=== PATIENT | female | born 1950 | race Caucasian/White ===

== ENCOUNTER → 2016-06-14 | Outpatient (CLI) | payer OTHER | END | disposition home or self-care (01) | LOC: CDC 14:04 | DX: R94.31 Abnormal electrocardiogram [ECG] [EKG] (principal) | CPT/HCPCS: 93000 ==

== ENCOUNTER 2016-06-27 22:30 | Inpatient (IN) | payer OTHER ==
[~2016-06-27] VITALS: Ht 152.4 cm; Wt 56.5 kg
[2016-06-27 23:17] LABS: HEMATOCRIT 44.3 % (36.0-46.0); MCH 30.1 PG (29.0-34.0); MCHC 34.1 G/DL (30.0-36.0); MCV 88.4 FL (83-99); MEAN PLAT.VOLUME 9.8 uM^3 (9.5-12.4); PLATELET COUNT 305 K/uL (156-360); RBC DIS.WIDTH-CV 12.2 % (11.8-14.6); RBC DIS.WIDTH-SD 38.8 % (39-53); RED BLOOD COUNT 5.01 M/uL (3.80-5.20); WHITE BLOOD COUNT 8.2 K/uL (4.1-10.2)
[2016-06-27 23:37] LABS: CHLORIDE 106 mEq/L (99-109); POTASSIUM 3.7 mEq/L (3.7-5.4); SODIUM 136 mEq/L (136-147)
[2016-06-27 23:37] LABS: ADD MIUA? YES; BILIRUBIN SMALL; BLOOD MODERATE; COLOR AMBER ((YELLOW)); GLUCOSE (STRIP) NEGATIVE; KETONES NEGATIVE; LEUKOCYTES MODERATE; NITRITE NEGATIVE; PROTEIN (STRIP) 30; SPECIFIC GRAVITY 1.028 (1.000-1.030); UROBILINOGEN 0.2 MG/DL (0.2-1.0)
[2016-06-27 23:38] LABS: GLUCOSE 99 mg/dL (70-99)
[2016-06-27 23:40] LABS: ANION GAP 9 MEQ/L (2-14)
[2016-06-27 23:42] LABS: GFR ESTIMATE (CALCULATED) 48 mL/min/
[2016-06-27 23:43] LABS: UREA NITROGEN (BUN) 21 mg/dL (9-23)
[2016-06-27 23:44] LABS: BACTERIA 2+ /HPF; EPITHELIAL CELLS 2+ /HPF; MUCUS 2+ /LPF; RED BLOOD CELLS TNTC /HPF (0-5); UCUL ADDED? YES; WHITE BLOOD CELLS 20-30 /HPF (0-5)
[2016-06-28 00:15] LABS: TOTAL BILIRUBIN 0.6 mg/dL (0.0-1.0)
[2016-06-28 00:16] LABS: ALKALINE PHOSPHATASE 64 IU/L (3-129)
[2016-06-28 00:19] LABS: DIRECT BILIRUBIN 0.2 mg/dL (0.0-0.3)
[2016-06-28 00:20] LABS: LIPASE 18 U/L (1.0-51.0)
[2016-06-28] MEDS ORDERED: ESCITALOPRAM OX10 MG PO (02:40)
[2016-06-28] MEDS ORDERED: YUVAFEM10 MCG VG (02:40)
[2016-06-28] MEDS ORDERED: SUMATRIPTAN SU100 MG PO (02:40)
[2016-06-28] MEDS ORDERED: LORAZEPAM0.5 MG PO (02:41)
[2016-06-28] MEDS ORDERED: ADIPEX-P37.5 M1 PO (02:43)
[2016-06-28] MEDS ORDERED: SYNTHROID75 MCG PO (02:44)
[2016-06-28] MEDS ORDERED: TOPIRAMATE100 MG PO (02:45)
[2016-06-28] MEDS ORDERED: PROPRANOLOL HCL60 MG PO (02:45)
[2016-06-28] MEDS ORDERED: SUMATRIPTA4 MG/0.51 SC (02:46)
[2016-06-28] MEDS ORDERED: SUMATRIPTA4 MG/0.5 M SC (02:46)
[2016-06-28 04:00] VITALS: BP 105/68
[2016-06-28 06:47] LABS: HEMATOCRIT 39.7 % (36.0-46.0); MCH 30.6 PG (29.0-34.0); MCHC 34.3 G/DL (30.0-36.0); MCV 89.2 FL (83-99); MEAN PLAT.VOLUME 10.1 uM^3 (9.5-12.4); PLATELET COUNT 255 K/uL (156-360); RBC DIS.WIDTH-CV 12.3 % (11.8-14.6); RBC DIS.WIDTH-SD 39.6 % (39-53); RED BLOOD COUNT 4.45 M/uL (3.80-5.20); WHITE BLOOD COUNT 7.9 K/uL (4.1-10.2)
[2016-06-28 07:28] VITALS: BP 90/44
[2016-06-28 07:35] LABS: ALKALINE PHOSPHATASE 46 IU/L (3-129); ANION GAP 11 MEQ/L (2-14); CHLORIDE 108 MEQ/L (99-109); GFR ESTIMATE (CALCULATED) > 59 mL/min/; GLUCOSE 95 mg/dL (70-99); POTASSIUM 3.2 MEQ/L (3.7-5.4); SAMPLE HEMOLYSIS CHECK 0; SAMPLE ICTERIC CHECK 0; SAMPLE LIPEMIA CHECK 0; SODIUM 138 MEQ/L (136-147); TOTAL BILIRUBIN 0.5 MG/DL (0.0-1.0); UREA NITROGEN (BUN) 18 mg/dL (9-23)
[2016-06-28 12:00] VITALS: BP 101/57
[2016-06-28 16:00] VITALS: BP 116/66
[2016-06-28 19:50] VITALS: BP 108/64
[2016-06-29] VITALS (7 sets, daily range): BP systolic 98–119; BP diastolic 53–70
[2016-06-29 07:30] LABS: BASOPHIL COUNT 0.1 K/uL (0-0.1); EOSINOPHIL (%) 4.1 % (0-5); EOSINOPHIL COUNT 0.2 K/uL (0-0.3); HEMATOCRIT 39.6 % (36.0-46.0); IMMATURE GRANULOCYTE (%) 0.2 % (0.0-0.7); INSTRUMENT ABS NEUTROPHIL CT 1.8 K/uL; MCH 29.5 PG (29.0-34.0); MCHC 32.6 G/DL (30.0-36.0); MCV 90.4 FL (83-99); MONOCYTE (%) 9.5 % (3-12); MONOCYTE COUNT 0.5 K/uL (0-0.8); NEUTROPHIL (%) 31.6 % (45-76); NEUTROPHIL COUNT 1.8 K/uL (1.8-6.4); PLATELET COUNT 274 K/uL (156-360); RBC DIS.WIDTH-CV 12.1 % (11.8-14.6); RED BLOOD COUNT 4.38 M/uL (3.80-5.20); WHITE BLOOD COUNT 5.6 K/uL (4.1-10.2)
[2016-06-29 08:12] LABS: ANION GAP 6 MEQ/L (2-14); CHLORIDE 113 MEQ/L (99-109); GFR ESTIMATE (CALCULATED) > 59 mL/min/; GLUCOSE 84 mg/dL (70-99); SAMPLE HEMOLYSIS CHECK 0; SAMPLE ICTERIC CHECK 0; SAMPLE LIPEMIA CHECK 0; SODIUM 142 MEQ/L (136-147); UREA NITROGEN (BUN) 11 mg/dL (9-23)
[2016-06-29 08:28] LABS: POTASSIUM 4.2 MEQ/L (3.7-5.4)
[2016-06-29] MEDS ORDERED: ATIVAN0.5 MG PO (11:25)
[2016-06-29] MEDS ORDERED: VITAMIN D31000 UNI1 PO (11:32)
[2016-06-30 03:16] VITALS: BP 99/55
[2016-06-30 07:45] VITALS: BP 96/55
[2016-06-30 11:50] VITALS: BP 118/59
[2016-06-30] MEDS ORDERED: BACTRIM,SEPT1 TABLET PO (14:40)
[2016-06-30] MEDS ORDERED: TAMSULOSIN HCL0.4 MG PO (14:42)
[2016-06-30] MEDS ORDERED: TORADOL10 MG PO (14:43)
== END 2016-06-30 15:24 | disposition home or self-care (01) | DRG 690 ==
LOC: EME 22:30 → 2EAST 06-28 02:14 → EDOF 06-28 02:14 → 2EASTP 06-28 04:00 → 2EAST 06-29 08:03
PROVIDERS: Internal Medicine
PROC: 0T768DZ Dilation of Right Ureter with Intraluminal Device, Via Natural or Artificial Opening Endoscopic (ICD-10-PCS; principal; 2016-06-29)
DX: N13.6 Pyonephrosis (principal); G43.909 Migraine, unspecified, not intractable, without status migrainosus; F41.9 Anxiety disorder, unspecified; F32.9 Major depressive disorder, single episode, unspecified; I45.19 Other right bundle-branch block; E03.9 Hypothyroidism, unspecified; E78.5 Hyperlipidemia, unspecified; B96.89 Other specified bacterial agents as the cause of diseases classified elsewhere
CPT/HCPCS: 74176; 74420; 80048; 80053; 80076; 81003; 83605; 83690; 85025; 85027; 87040; 87086; 93005; 93306; 99281; 99284; C1876; J0696; J0744; J1100; J1644; J1885; J2250; J2405; J3010; J7030; J7050

== ENCOUNTER → 2017-05-23 | Outpatient (CLI) | payer OTHER ==
[~2017-05-23] VITALS: Ht 151.1 cm; Wt 52.8 kg
[~2017-05-23] MED LIST: ADIPEX-P37.5 M1 PO; ATIVAN0.5 MG PO; BACTRIM,SEPT1 TABLET PO; ESCITALOPRAM OX10 MG PO; LORAZEPAM0.5 MG PO; PROPRANOLOL HCL60 MG PO; SUMATRIPTA4 MG/0.5 M SC; SUMATRIPTA4 MG/0.51 SC; SUMATRIPTAN SU100 MG PO; SYNTHROID75 MCG PO; TAMSULOSIN HCL0.4 MG PO; TOPIRAMATE100 MG PO; TORADOL10 MG PO; VITAMIN D31000 UNI1 PO; VITAMIN D3500 UNIT/5 PO; YUVAFEM10 MCG VG
[2017-05-23 10:25] VITALS: BP 112/73
== END | disposition home or self-care (01) ==
LOC: IVINF 08:30
DX: M81.0 Age-related osteoporosis without current pathological fracture (principal)
CPT/HCPCS: 96365; J3489